=== PATIENT | female | born 1945 | race Caucasian/White ===

== ENCOUNTER → 2016-07-19 | Outpatient (CLI) | payer OTHER | LOC: KOH-I 07-14 11:00 | DX: I73.9 Peripheral vascular disease, unspecified (principal) | CPT/HCPCS: 93922; 93926 ==

== ENCOUNTER → 2020-07-01 | Outpatient (CLI) | payer OTHER ==
[~2020-07-01] MED LIST: ACETAZOLAMIDE250 MG PO; CATAPRES 0.1MG0.1 MG PO; CELEBREX 200MG200 MG PO; COZAAR25 MG PO; ESTROGEN-METHY1 EAC2 PO; FLOMAX 0.4 MG0.4 MG PO; METOPROLOL TART25 MG PO; MICROZIDE12.5 MG PO; NITROSTAT0.4 MG PO; NORCO 5-325 TA1 EACH PO; OMEPRAZOLE20 MG PO; RANEXA500 MG PO; TOPROL XL25 MG PO; VITAMIN D PO; ZOFRAN ODT 4 MG4 MG SL; ZYRTEC10 MG PO
== END ==
LOC: KOH-I 08:30
DX: N20.0 Calculus of kidney (principal)
CPT/HCPCS: 74176

== ENCOUNTER → 2020-07-08 | Outpatient (CLI) | payer OTHER | LOC: KOH-I 11:54 | DX: N20.0 Calculus of kidney (principal) | CPT/HCPCS: 74018 ==

== ENCOUNTER → 2020-07-25 | Outpatient (CLI) | payer OTHER | LOC: KOH-I 11:47 | DX: S80.02XA Contusion of left knee, initial encounter (principal) | CPT/HCPCS: 73564 ==

== ENCOUNTER → 2020-10-10 | Outpatient (CLI) | payer OTHER | LOC: KOH-I 16:05 | DX: M79.671 Pain in right foot (principal) | CPT/HCPCS: 73630 ==

== ENCOUNTER → 2020-11-06 | Outpatient (CLI) | payer OTHER | LOC: KOH-I 12:57 | DX: N20.0 Calculus of kidney (principal); R14.3 Flatulence | CPT/HCPCS: 74018 ==

== ENCOUNTER → 2021-09-18 | Outpatient (CLI) | payer OTHER | LOC: EXRD 11:43 | DX: N20.0 Calculus of kidney (principal) | CPT/HCPCS: 74018 ==